=== PATIENT | female | born 1990 | race Caucasian/White ===

== ENCOUNTER 2018-08-13 20:02 | Emergency (ER) | payer MEDICAID ==
[2018-08-13] MEDS ORDERED: KETOROLAC TROMETHAMINE 60 MG/2 ML SDV IM ONE (20:25)
--- NOTE | 2018-08-13 20:28 | ER Document Report ---
ED Medical Screen (RME) - General Chief Complaint: Jaw Pain Stated Complaint: JAW PROBLEM Time Seen by Provider: 08/13/18 20:28 Notes: This is a 28-year-old female patient sent over here from the urgent care for evaluation of possible jaw dislocation. Patient denies any trauma. Did not feel it dislocate. Has pain in the right jaw. Has never had a dislocated jaw before. Able to move jaw up and down. States that it does hurt to chew. I have greeted and performed a rapid initial assessment of this patient. A comprehensive ED assessment and evaluation of the patient, analysis of test results and completion of the medical decision making process will be conducted by additional ED providers. Past Medical History - Social History Chew tobacco use (# tins/day): No Frequency of alcohol use: None Drug Abuse: None - Past Medical History Cardiac Medical History: Reports: Hx Hypertension Renal/ Medical History: Denies: Hx Peritoneal Dialysis Psychiatric Medical History: Reports: Hx Depression Physical Exam - Vital signs Vitals: Pulse Resp BP Pulse Ox 112 H 20 147/87 H 99 08/13/18 20:07 08/13/18 20:07 08/13/18 20:07 08/13/18 20:07 - HEENT Head: Normocephalic, Atraumatic Eyes: Normal Pupils: PERRL Notes: She is able to open up mouth and close mouth. Does have some tenderness at the right TMJ. No obvious dislocation at this time. Course - Vital Signs Vital signs: Temp Pulse Resp BP Pulse Ox 112 H 20 147/87 H 99 08/13/18 20:07 08/13/18 20:07 08/13/18 20:07 08/13/18 20:07
--- NOTE | 2018-08-13 21:09 | RADIOLOGY REPORT (SQ) ---
EXAM DESCRIPTION: XR MANDIBLE 4 OR MORE VIEWS COMPLETED DATE/TME: 08/13/2018 00:00 CLINICAL HISTORY: 28 years, Female, jaw pain COMPARISON: EXAM DESCRIPTION: CLINICAL HISTORY: jaw pain COMPARISON: None FINDINGS: 4 view(s) submitted. No fracture or dislocation is identified. Bone marrow attenuation is unremarkable. Facial jewelry is present. IMPRESSION: No acute fracture or dislocation. NUMBER OF VIEWS: TECHNIQUE: LIMITATIONS: None. FINDINGS: IMPRESSION: [address] [facility] [employer]- All Rights Reserved
[2018-08-13] MEDS ORDERED: DIAZEPAM 5 MG TABLET PO ONE (22:07)
--- NOTE | 2018-08-13 22:12 | ER Document Report ---
ED General - General Chief Complaint: Jaw Pain Stated Complaint: JAW PROBLEM Time Seen by Provider: 08/13/18 20:28 Notes: Patient is a 28-year-old female without chronic medical problems who presents with approximately 12 hours of right jaw pain and spasming. Patient states that when she woke up this morning she felt she could hardly open her jaw. She notes an associated throbbing, aching, intermittent pain that is triggered by attempts at opening her mouth. She states that she has been unable to chew due to the pain. No history of similar symptoms in the past. No trauma to the area. States that she was seen in urgent care, referred to the emergency department for concerns of possible dislocated jaw. She denies any headache, neck pain, facial swelling, fever or constitutional symptoms. Past Medical History - General Information source: Patient - Social History Smoking Status: Current Every Day Smoker Chew tobacco use (# tins/day): No Frequency of alcohol use: None Drug Abuse: None Lives with: Spouse/Significant other Family History: Reviewed & Not Pertinent Patient has suicidal ideation: No Patient has homicidal ideation: No - Past Medical History Cardiac Medical History: Reports: Hx Hypertension Renal/ Medical History: Denies: Hx Peritoneal Dialysis Psychiatric Medical History: Reports: Hx Depression Review of Systems - Review of Systems Notes: Constitutional: Negative for fever. HENT: Negative for sore throat. Eyes: Negative for visual changes. Cardiovascular: Negative for chest pain. Respiratory: Negative for shortness of breath. Gastrointestinal: Negative for abdominal pain, vomiting or diarrhea. Genitourinary: Negative for dysuria. Musculoskeletal: Positive for right jaw pain Skin: Negative for rash. Neurological: Negative for headaches, weakness or numbness. 10 point ROS negative except as marked above and in HPI. Physical Exam - Vital signs Vitals: Pulse Resp BP Pulse Ox 112 H 20 147/87 H 99 08/13/18 20:07 08/13/18 20:07 08/13/18 20:07 08/13/18 20:07 Interpretation: Tachycardic Notes: PHYSICAL EXAMINATION: GENERAL: Well-appearing, well-nourished and in no acute distress. HEAD: Atraumatic, normocephalic. EYES: Pupils equal round and reactive to light, extraocular movements intact, sclera anicteric, conjunctiva are normal. ENT: nares patent, oropharynx clear without exudates. Moist mucous membranes. No pain or swelling over the TMJs bilaterally. Mild trismus on exam. No obvious poor dentition, gums swelling. Airway widely patent. NECK: Normal range of motion, supple without lymphadenopathy LUNGS: Breath sounds clear to auscultation bilaterally and equal. No wheezes rales or rhonchi. HEART: Regular rate and rhythm without murmurs ABDOMEN: Soft, nontender, normoactive bowel sounds. No guarding, no rebound. No masses appreciated. EXTREMITIES: Normal range of motion, no pitting or edema. No cyanosis. NEUROLOGICAL: No focal neurological deficits. Moves all extremities spontaneously and on command. PSYCH: Normal mood, normal affect. SKIN: Warm, Dry, normal turgor, no rashes or lesions noted. Course - Re-evaluation Re-evalutation: 08/13/18 22:09 Patient presents with 12 hours of right sided jaw pain and spasm. Patient states that the spasming makes it difficult to open her jaw. On exam the patient does have notable trismus although was able to open the mouth at least 4 -5 cm. Oral exam without any evidence of poor dentition, apical abscesses or gumline induration or swelling. Uvula midline. No tonsillar hypertrophy. There is no visible facial swelling. No focal pain on palpation of the TMJs. X -ray of the mandible without any evidence of dislocation or fracture. The exact head of the patient's presentation is unclear at this point and I have reviewed this with the patient. I will empirically treat with a course of diazepam to see if this does relieve the patient's symptoms. I have asked her to follow-up closely with her dentist or primary care doctor ideally within the next 24 hours. At this time will discharge with return precautions and follow- up recommendations. Verbal discharge instructions given a the bedside and opportunity for questions given. Medication warnings reviewed. Patient is in agreement with this plan and has verbalized understanding of return precautions and the need for close follow-up within the next 24 hours. - Vital Signs Vital signs: Temp Pulse Resp BP Pulse Ox 98.0 F 79 18 143/90 H 99 08/13/18 22:31 08/13/18 22:31 08/13/18 22:31 08/13/18 22:31 08/13/18 22:31 - Diagnostic Test Radiology reviewed: Image reviewed, Reports reviewed Radiology results interpreted by me: 08/14/18 04:10 Mandible x-ray: No evidence of fracture or dislocation Discharge - Discharge Clinical Impression: Jaw pain, Trismus Condition: Good Disposition: HOME, SELF-CARE Additional Instructions: The exact cause of your jaw spasming and pain is uncertain. Your x-ray is normal and does not show a dislocated or fractured jaw. There is no evidence of infection on your exam. This may be due to muscle spasming. Your being sent home with a prescription for Valium for the next 1-2 days to try to allow the spasming to resolve. Please follow-up with your dentist ideally within the next 24 hours. If you are not having improvement or he have worsening of your symptoms, develop fever, develop facial swelling, difficulty breathing, difficulty swallowing please return to the emergency department immediately. Prescriptions: Diazepam [Valium 5 mg Tablet] 5 mg PO QIDP PRN #5 tablet PRN Reason: jaw spasm Referrals: KALEIGH FLEMING MD [Primary Care Provider] - Follow up as needed
[2018-08-13 22:32] VITALS: BP 143/90
== END 2018-08-13 22:32 | disposition home or self-care (01) ==
LOC: ER 20:02
DX: R68.84 Jaw pain (principal); R25.2 Cramp and spasm; I10 Essential (primary) hypertension; F17.200 Nicotine dependence, unspecified, uncomplicated
CPT/HCPCS: 99283; 96372; 70110; J3490; J1885